=== PATIENT | female | born 1990 | race Caucasian/White ===

== ENCOUNTER 2016-06-17 07:14 | Day surgery (SDC) | payer OTHER ==
[2016-05-04 15:13] VITALS: BMI 27.1
[2016-06-17] MEDS ORDERED: Lactated Ringer's 500 ML IV ONE (08:07)
[2016-06-17] MEDS ORDERED: Propofol 10 mg/ml Inj (20 ML) ONE (09:14)
[2016-06-17 09:40] VITALS: TEMP 97
[2016-06-17 09:48] VITALS: BP 128/80; PULSE 87; RESP 20; O2SAT 100
== END 2016-06-17 10:03 | disposition home or self-care (01) ==
LOC: H.ENDO 07:14
PROVIDERS: ATTEND Internal Medicine Gastroenterology
DX: K30 Functional dyspepsia (principal); K44.9 Diaphragmatic hernia without obstruction or gangrene

== ENCOUNTER 2016-07-29 12:06 | Emergency (ER) | payer OTHER ==
[2016-07-29 12:25] VITALS: BMI 30.7
[2016-07-29 12:26] VITALS: TEMP 98.3; O2SAT 100
[2016-07-29] MEDS ORDERED: Iohexol 240 (50 ml) PO ONE (13:17)
[2016-07-29] MEDS ORDERED: Sodium Chloride 0.9% 1,000 ML IV ONE (13:22)
--- NOTE | 2016-07-29 13:22 | ED PDOC ---
HPI: Abdomen Time Seen by Provider: 07/29/16 12:42 Chief Complaint (Nursing): Abdominal Pain History Per: Patient History/Exam Limitations: no limitations Onset/Duration Of Symptoms: Days (3), Gradual Current Symptoms Are (Timing): Still Present Severity: Mild Location Of Pain/Discomfort: Diffuse Quality Of Discomfort: Cramping Associated Symptoms: Nausea, Constipation. denies: Fever, Chills, Vomiting, Diarrhea, Loss Of Appetite, Back Pain, Chest Pain, Urinary Symptoms Exacerbating Factors: None Alleviating Factors: None Last Bowel Movement: Days Ago (7) Additional History Per: Patient Additional Complaint(s): abd pain and [id number] since yesterday, r sided headache, cold sweats; hands cramping started today. pt has spinal effusion June by Dr Sher at [facility]. placed on movantiv Past Medical History Reviewed: Historical Data, Nursing Documentation, Vital Signs Vital Signs: Last Vital Signs Temp 98.3 F 07/29/16 12:25 Pulse 116 H 07/29/16 12:25 Resp 21 07/29/16 12:25 BP 125/72 07/29/16 12:25 Pulse Ox 100 07/29/16 13:25 - Medical History PMH: No Chronic Diseases Denies: Chronic Kidney Disease - Surgical History Other surgeries: recent spinal fusion - Family History Family History: States: Unknown Family Hx - Living Arrangements Living Arrangements: With Family - Social History Current smoker - smoking cessation education provided: No - Home Medications Home Medications: Ambulatory Orders Medication Instructions Recorded Polyethylene Glycol 3350 [Miralax] 17 gm PO DAILY 4 Days 07/29/16 - Allergies Allergies/Adverse Reactions: Allergies Allergy/AdvReac Type Severity Reaction Status Date / Time aspirin Allergy Intermediate SWELLING Verified 06/17/16 08:06 OF EYES citric acid Allergy Intermediate SWELLING Verified 06/17/16 08:06 [From [facility]] OF EYES Penicillins Allergy Intermediate SWELLING Verified 06/17/16 08:06 OF EYES sodium bicarbonate Allergy Intermediate SWELLING Verified 06/17/16 08:06 [From [facility]] OF EYES Review of Systems ROS Statement: Except As Marked, All Systems Reviewed And Found Negative Constitutional: Negative for: Fever, Chills Cardiovascular: Negative for: Chest Pain, Palpitations Respiratory: Negative for: Cough, Shortness of Breath Gastrointestinal: Positive for: Nausea. Negative for: Vomiting, Abdominal Pain , Diarrhea Musculoskeletal: Negative for: Neck Pain Skin: Negative for: Rash Neurological: Positive for: Altered Mental Status, Headache. Negative for: Weakness, Numbness, Change in Speech, Confusion, Seizures, Dizziness Physical Exam - Reviewed Nursing Documentation Reviewed: Yes Vital Signs Reviewed: Yes - Physical Exam Appears: Positive for: Well, No Acute Distress Head Exam: Positive for: ATRAUMATIC, NORMAL INSPECTION, NORMOCEPHALIC Eye Exam: Positive for: Normal appearance, EOMI, PERRL Neck: Positive for: Normal, Painless ROM, Supple Cardiovascular/Chest: Positive for: Regular Rate, Rhythm, Chest Non Tender. Negative for: Edema, Gallop Respiratory: Positive for: Normal Breath Sounds. Negative for: Decreased Breath Sounds, Accessory Muscle Use, Crackles, Rales, Rhonchi, Stridor, Wheezing Gastrointestinal/Abdominal: Positive for: Bowel Sounds, Soft, Distended (mild). Negative for: Tenderness, Organomegaly, Mass Back: Positive for: Other (well healed lumbar and thoracic incision site c/d/i affixed with steri strips). Negative for: L CVA Tenderness, R CVA Tenderness, Decreased ROM Extremity: Positive for: Normal ROM. Negative for: Tenderness, Pedal Edema, Calf Tenderness, Deformity Neurologic/Psych: Positive for: Alert, superintendent police II-XII, Oriented, Mood/Affect (calm) , Other (+ ehl bl). Negative for: Motor/Sensory Deficits, Aphasia, Facial Droop - Laboratory Results Result Diagrams: 07/29/16 14:45 07/29/16 14:45 - ECG O2 Sat by Pulse Oximetry: 100 Pulse Ox Interpretation: Normal - Progress ED Course And Treament: discussed case with pt pmd Dr sher no complication of the procedure. will d/c home to close f/u. pt agree's with plan. Re-evaluation Time: 17:49 Condition: Improved Medical Decision Making Medical Decision Making: pt refused lumbar puncture to r/o sah pt informed of risks. Disposition - Clinical Impression Clinical Impression: Headache, Constipation - Patient ED Disposition Is Patient to be Admitted: No Counseled Patient/Family Regarding: Studies Performed, Diagnosis, Need For Followup - Disposition Referrals: Zackery Loera MD [Staff Provider] - (2 to 3 days) Disposition: Routine/Home Disposition Time: 17:53 Condition: GOOD Additional Instructions: Follow up with your doctor in 2 days Prescriptions: Polyethylene Glycol 3350 [Miralax] 17 gm PO DAILY 4 Days Instructions: Constipation (ED), Acute Headache (ED)
[2016-07-29] MEDS ORDERED: Iohexol 240 (50 ml) ONE (14:29)
--- NOTE | 2016-07-29 14:36 | CT ---
PROCEDURE: CT HEAD WITHOUT CONTRAST. HISTORY: r sided hernandez no trauma COMPARISON: None available. TECHNIQUE: Axial computed tomography images were obtained through the head/brain without intravenous contrast. Radiation dose: Total exam DLP = 890.68 mGy-cm. This CT exam was performed using one or more of the following dose reduction techniques: Automated exposure control, adjustment of the mA and/or kV according to patient size, and/or use of iterative reconstruction technique. FINDINGS: HEMORRHAGE: No intracranial hemorrhage. BRAIN: Torres-white matter differentiation is preserved. There is no mass, mass effect or abnormal extra-axial fluid collection. VENTRICLES: The ventricles are normal in size, shape and configuration.. CALVARIUM: There is high biparietal smooth scalloping of inner table, more prominent on the left with an associated soft tissue density. 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 PARANASAL SINUSES: Predominantly clear. MASTOID AIR CELLS: Predominantly clear. OTHER FINDINGS: None. IMPRESSION: No acute intracranial abnormality. Biparietal inner table smooth scalloping, worse on the left with an associated soft tissue density. Findings are nonspecific however arachnoid cyst or encephalocele cannot be excluded, especially on the left. An MRI of the brain without and with intravenous contrast would be helpful for further evaluation.
[2016-07-29 14:58] LABS: BASO % 0.4 % (0.0-2.0); EOS # 0.1 K/uL (0.0-0.7); EOS % 1.6 % (0.0-4.0); HEMATOCRIT 31.1 % (34.0-47.0); LYMPH # 1.7 K/uL (1.0-4.3); LYMPH % 21.8 % (20.0-40.0); MEAN CELL VOLUME 92.2 fl (81.0-99.0); MEAN CORPUSCULAR HEMOGLOBIN 30.9 pg (27.0-31.0); MEAN CORPUSCULAR HGB CONC 33.5 g/dL (33.0-37.0); MEAN PLATELET VOLUME 7.9 fl (7.2-11.7); MONO # 0.4 K/uL (0.0-0.8); MONO % 4.6 % (0.0-10.0); NEUT # 5.7 K/uL (1.8-7.0); NEUT % 71.6 % (50.0-75.0); RED CELL DISTRIBUTION WIDTH 13.2 % (11.5-14.5); WHITE BLOOD COUNT 7.9 K/uL (4.8-10.8)
[2016-07-29 15:05] LABS: RBC URINE 27 /hpf (0-3); URINE BACTERIA RARE (<OCC); URINE BILIRUBIN NEGATIVE (NEGATIVE); URINE BLOOD LARGE (NEGATIVE); URINE COLOR AMBER (YELLOW); URINE GLUCOSE (UA) NEG (Normal); URINE KETONE NEGATIVE (NEGATIVE); URINE LEUKOCYTE ESTERASE SMALL Leu/uL (Negative); URINE PROTEIN 100 mg/dL (NEGATIVE); URINE UROBILINOGEN 0.2-1.0 mg/dL (0.2-1.0); WBC URINE 8 /hpf (0-5)
[2016-07-29 15:20] LABS: ALB/GLOB RATIO 1.1 (1.0-2.1); ALKALINE PHOSPHATASE 139 U/L (38-126); ALT/SGPT 81 U/L (9-52); AMYLASE 71 U/L (30-110); AST/SGOT 55 U/L (14-36); BILIRUBIN,TOTAL 0.4 mg/dl (0.2-1.3); BLOOD UREA NITROGEN 5 mg/dl (7-17); CALCIUM 8.8 mg/dL (8.4-10.2); CARBON DIOXIDE 23 mmol/L (22-30); CHLORIDE 106 mmol/L (98-107); GFR AFRICAN-AMERICAN > 60; GLUCOSE,RANDOM 80 mg/dL (65-105); LIPASE 32 U/L (23-300); SODIUM 139 mmol/l (132-148)
[2016-07-29] MEDS ORDERED: Sodium Chloride 0.9% 50 ML IV ONE (16:28)
[2016-07-29] MEDS ORDERED: Iohexol 300 50 ML ONE (16:28)
--- NOTE | 2016-07-29 17:35 | CT ---
PROCEDURE: CT Abdomen and Pelvis with contrast HISTORY: abd pain r/o sbo COMPARISON: None. TECHNIQUE: Contrast dose: 100 cc of Omnipaque 300 Radiation dose: Total exam DLP = 868 mGy-cm. This CT exam was performed using one or more of the following dose reduction techniques: Automated exposure control, adjustment of the mA and/or kV according to patient size, and/or use of iterative reconstruction technique. FINDINGS: LOWER THORAX: Unremarkable. LIVER: Unremarkable. No gross lesion or ductal dilatation. GALLBLADDER AND BILE DUCTS: Unremarkable. PANCREAS: Unremarkable. No gross lesion or ductal dilatation. SPLEEN: Unremarkable. ADRENALS: Unremarkable. No mass. KIDNEYS AND URETERS: Unremarkable. No hydronephrosis. No solid mass. VASCULATURE: Unremarkable. No aortic aneurysm. BOWEL: Unremarkable. No obstruction. No gross mural thickening. APPENDIX: Normal appendix. PERITONEUM: Unremarkable. No free fluid. No free air. LYMPH NODES: Unremarkable. No enlarged lymph nodes. BLADDER: Unremarkable. REPRODUCTIVE: Unremarkable. BONES: No acute fracture. Dubon rods in the spine. OTHER FINDINGS: None. IMPRESSION: Unremarkable contrast enhanced CT of the abdomen and pelvis.
[2016-07-29 18:04] VITALS: BP 111/71; PULSE 78; RESP 18
== END 2016-07-29 18:14 | disposition home or self-care (01) ==
LOC: H.ER 12:06
DX: K59.00 Constipation, unspecified (principal); R51 Headache; Q01.9 Encephalocele, unspecified; R10.9 Unspecified abdominal pain; Z88.0 Allergy status to penicillin